=== PATIENT | female | born 1995 | race African-American/Black ===

== ENCOUNTER 2025-09-08 13:28 | Outpatient (CLI) | payer OTHER | END 2025-09-08 13:29 | disposition home or self-care (01) | LOC: ULT 13:28 | PROVIDERS: ATTEND Internal Medicine | DX: D25.0 Submucous leiomyoma of uterus (principal); D25.2 Subserosal leiomyoma of uterus; N83.291 Other ovarian cyst, right side | CPT/HCPCS: 76856 ==